=== PATIENT | female | born 1990 | race Caucasian/White ===

== ENCOUNTER 2018-04-06 09:17 | Inpatient (IN) | payer MEDICAID ==
[~2018-04-06] VITALS: Ht 162.6 cm; Wt 78.0 kg
[2018-04-06 10:30] LABS: BASOPHIL % 0.3 % (0-2); RED CELL DISTRIBUTION WIDTH 13.4 % (11.5-14.5)
[2018-04-06 10:33] LABS: CALCIUM 8.9 mg/dL (8.5-10.1); CARBON DIOXIDE 21.9 mmol/L (21-32); CHLORIDE SERUM 103 mmol/L (98-107); CREATININE SERUM 0.9 mg/dL (0.6-1.0); GFR1 > 60 mL/min; GLUCOSE SERUM 102 mg/dL (74-106); POTASSIUM SERUM 3.8 mmol/L (3.5-5.1); SODIUM SERUM 135 mmol/L (136-145)
[2018-04-06 10:38] LABS: ALBUMIN 3.8 g/dL (3.4-5.0); ALKALINE PHOSPHATASE 80 U/L (46-116); ALT/SGPT 24 U/L (14-59); AST/SGOT 12 U/L (15-37); BILIRUBIN TOTAL 0.67 mg/dL (0.20-1.00); TOTAL PROTEIN, SERUM 7.8 g/dL (6.4-8.2)
[2018-04-06 10:59] LABS: PLATELET COUNT 481 x10^3mcL (130-400)
[2018-04-06 13:28] LABS: CHOLESTEROL/HDL RATIO 4.3; PHOSPHOROUS 1.6 mg/dL (2.5-4.9)
[2018-04-06 13:41] LABS: T3 TOTAL 1.19 ng/mL
[2018-04-06 14:01] LABS: FREE T4 1.42 ng/dL (0.76-1.46); FREE THYROXINE INDEX 3.4 ug/dL (1.4-4.5); T4(THYROXINE) 10.2 ug/dL (4.7-13.3)
[2018-04-06 14:39] LABS: UA SPECIFIC GRAVITY 1.025 (1.005-1.035); microscopic required? YES; urine erythrocyte 3+ (NEGATIVE)
[2018-04-06 14:44] LABS: AMPHETAMINE QUAL UR NONE DETECTED (See below)
[2018-04-06 15:45] VITALS: BP 111/57
[2018-04-06 19:50] VITALS: BP 96/46
[2018-04-07 05:53] VITALS: BP 95/56
[2018-04-07 09:11] VITALS: BP 96/43
[2018-04-07 09:40] LABS: CALCIUM 7.4 mg/dL (8.5-10.1); CARBON DIOXIDE 22.6 mmol/L (21-32); CREATININE SERUM 0.9 mg/dL (0.6-1.0); GFR1 > 60 mL/min; GLUCOSE SERUM 120 mg/dL (74-106); MAGNESIUM 1.6 mg/dL (1.8-2.4); PHOSPHOROUS 2.8 mg/dL (2.5-4.9)
[2018-04-07 09:47] LABS: BASOPHIL % 0.3 % (0-2); PLATELET COUNT 335 x10^3mcL (130-400); RED CELL DISTRIBUTION WIDTH 13.8 % (11.5-14.5)
[2018-04-07 10:04] LABS: CHLORIDE SERUM 106 mmol/L (98-107); POTASSIUM SERUM 3.1 mmol/L (3.5-5.1); SODIUM SERUM 136 mmol/L (136-145)
[2018-04-07 17:40] VITALS: BP 93/50
[2018-04-07 21:00] VITALS: BP 95/51
[2018-04-08 05:27] VITALS: BP 94/52
[2018-04-08 06:59] LABS: BASOPHIL % 0.4 % (0-2); PLATELET COUNT 335 x10^3mcL (130-400); RED CELL DISTRIBUTION WIDTH 13.7 % (11.5-14.5)
[2018-04-08 07:21] LABS: CALCIUM 7.9 mg/dL (8.5-10.1); CARBON DIOXIDE 23.7 mmol/L (21-32); CHLORIDE SERUM 108 mmol/L (98-107); CREATININE SERUM 0.7 mg/dL (0.6-1.0); GFR1 > 60 mL/min; GLUCOSE SERUM 101 mg/dL (74-106); MAGNESIUM 2.1 mg/dL (1.8-2.4); PHOSPHOROUS 2.8 mg/dL (2.5-4.9); POTASSIUM SERUM 3.6 mmol/L (3.5-5.1); SODIUM SERUM 140 mmol/L (136-145)
[2018-04-08 08:42] VITALS: BP 98/48
[2018-04-08 16:25] VITALS: BP 99/62
[2018-04-08 22:14] VITALS: BP 98/52
[2018-04-09 05:48] VITALS: BP 96/52
[2018-04-09 06:12] LABS: CALCIUM 7.9 mg/dL (8.5-10.1); CARBON DIOXIDE 27.6 mmol/L (21-32); CHLORIDE SERUM 107 mmol/L (98-107); CREATININE SERUM 0.6 mg/dL (0.6-1.0); GFR1 > 60 mL/min; GLUCOSE SERUM 95 mg/dL (74-106); MAGNESIUM 2.2 mg/dL (1.8-2.4); PHOSPHOROUS 3.2 mg/dL (2.5-4.9); POTASSIUM SERUM 3.8 mmol/L (3.5-5.1); SODIUM SERUM 140 mmol/L (136-145)
[2018-04-09 06:32] LABS: BASOPHIL % 0.3 % (0-2); PLATELET COUNT 368 x10^3mcL (130-400); RED CELL DISTRIBUTION WIDTH 13.3 % (11.5-14.5)
[2018-04-09] MEDS ORDERED: FLO4 PO (08:57)
[2018-04-09 09:46] VITALS: BP 100/49
[2018-04-09 11:06] VITALS: BP 100/49
[2018-04-09] MEDS ORDERED: NOR10T PO ×2 (11:16→11:23)
[2018-04-09] MEDS ORDERED: TYL325 PO (11:16)
== END 2018-04-09 16:45 | disposition home or self-care (01) | DRG 465 ==
LOC: ED 09:17 → MU 12:42
PROVIDERS: Emergency Medicine; Family Medicine; Internal Medicine
DX: N13.2 Hydronephrosis with renal and ureteral calculous obstruction (principal); N17.0 Acute kidney failure with tubular necrosis; E83.39 Other disorders of phosphorus metabolism; R31.0 Gross hematuria; E78.5 Hyperlipidemia, unspecified; R80.9 Proteinuria, unspecified; D47.3 Essential (hemorrhagic) thrombocythemia; E83.42 Hypomagnesemia; Z87.442 Personal history of urinary calculi
CPT/HCPCS: 84439; J1885; J2270; J2405; J3010; J7030; Q0092